=== PATIENT | male | born 1975 ===

== ENCOUNTER 2022-04-20 09:46 | Day surgery (SDC) | payer MEDICARE, OTHER ==
[2022-04-19 12:06] VITALS: BMI 32.5
[2022-04-20] MEDS ORDERED: Lidocaine 1% MPF 2 ML VIAL ONE (10:38)
[2022-04-20] MEDS ORDERED: Lidocaine 1% PF 5 ML VIAL ONE (11:00)
[2022-04-20] MEDS ORDERED: Midazolam HCl 2 mg/2 ml Vial ONE (11:00)
[2022-04-20] MEDS ORDERED: Ketorolac Tromethamine 30 MG/ML VIAL ONE (11:00)
[2022-04-20] MEDS ORDERED: Ondansetron PF 4 MG/2 ML Vial ONE (11:00)
[2022-04-20] MEDS ORDERED: PROPOFOL 20 ML ONE ×2 (11:00→12:21)
[2022-04-20] MEDS ORDERED: Fentanyl 100 MCG/2 ML VIAL ONE ×3 (11:00→13:15)
[2022-04-20] MEDS ORDERED: Dexamethasone 20 MG/5 ML VIAL ONE (11:00)
[2022-04-20] MEDS ORDERED: Bupivacaine PF 0.5% 30 ML VIAL ONE (11:01)
[2022-04-20] MEDS ORDERED: Neomycin-Polymyxin 1 ML AMP ONE (11:01)
[2022-04-20] MEDS ORDERED: CEFAZOLIN 2 GM VIAL ONE (11:48)
== END 2022-04-20 14:50 | disposition home or self-care (01) ==
LOC: EDBD → CSHSDC 09:46
PROVIDERS: ATTEND Podiatrist Foot & Ankle Surgery
PROC: 0SGQ0JZ Fusion of Left Toe Phalangeal Joint with Synthetic Substitute, Open Approach (ICD-10-PCS; principal; 2022-04-20)
DX: S92.412A Displaced fracture of proximal phalanx of left great toe, initial encounter for closed fracture (principal); K21.9 Gastro-esophageal reflux disease without esophagitis; F17.210 Nicotine dependence, cigarettes, uncomplicated; Z20.822 Contact with and (suspected) exposure to COVID-19; Z79.899 Other long term (current) drug therapy; Z88.8 Allergy status to other drugs, medicaments and biological substances; W10.9XXA Fall (on) (from) unspecified stairs and steps, initial encounter
CPT/HCPCS: 28755; 73620; C1713; C1769; J0690; J1100; J1885; J2250; J2405; J2704; J3010; S0020